=== PATIENT | female | born 1945 | race Caucasian/White ===

== ENCOUNTER 2021-02-19 05:31 | Day surgery (SDC) | payer MEDICARE ==
[2021-02-19] MEDS ORDERED: Dextrose 5%-Lactated Ringers 1,000 ML IV SCH (06:30)
[2021-02-19] MEDS ORDERED: Propofol 200 MG/20 ML SDV ONE (06:59)
[2021-02-19] MEDS ORDERED: fentaNYL 100 MCG/2 ML SDV ONE (06:59)
[2021-02-19] MEDS ORDERED: Midazolam 1 MG/ML 2 ML SDV ONE (06:59)
--- NOTE | 2021-02-20 12:53 | OR ---
DATE OF PROCEDURE: 02/19/2021 SURGEON: Franck Frias MD PREOPERATIVE DIAGNOSES: History of colon polyps and breast carcinoma. POSTOPERATIVE DIAGNOSES: 1. History of colon polyps and breast carcinoma. 2. No recurrent polyps on today's examination. OPERATIVE PROCEDURE: Flexible colonoscopy. ANESTHESIA: IV sedation. INDICATIONS FOR PROCEDURE: This is a 75-year-old female with previous history of colon polyp as well as personal history of colon carcinoma, both putting her in somewhat high risk for recurrent polyp formation. Plan is to proceed with a flexible colonoscopy with biopsies and/or polypectomy as indicated. Potential risks including bleeding and perforation were discussed, and the patient wishes to proceed. DETAILS OF PROCEDURE: The patient was taken to the operating room, placed in a left lateral decubitus position. IV sedation was administered, after which the initial digital rectal exam was performed and was unremarkable. On the left side of the anal verge, somewhat thickened but did not appear to be suggestive of any neoplastic change. The scope was then passed into the rectum with retroflexion revealing uncomplicated hemorrhoidal columns. Scope was eventually passed to the level of the cecum. The prep was quite good with only small amount of liquid stool was present to that level. No pathology was seen. Strictly, there were no areas of diverticulosis, colitis, and no additional polyps or signs of neoplasia identified. Scope was then withdrawn and the above findings reconfirmed, and the procedure was then concluded. Given the patient's history, if her health remains good, in 5 years she should have a repeat colonoscopy. Farnck Frias MD /[id number]
== END 2021-02-19 08:47 | disposition home or self-care (01) ==
LOC: JP.SDS 05:31
PROVIDERS: ATTEND Surgery
DX: Z12.11 Encounter for screening for malignant neoplasm of colon (principal); K64.9 Unspecified hemorrhoids; Z85.3 Personal history of malignant neoplasm of breast; Z86.010 Personal history of colon polyps
CPT/HCPCS: G0105; J2250; J2704; J3010; J7121